=== PATIENT | female | born 1960 | race Caucasian/White ===

== ENCOUNTER 2021-11-22 09:51 | Inpatient (IN) | payer OTHER ==
[~2021-11-22] VITALS: Ht 165.1 cm; Wt 86.2 kg
[2021-11-22 10:28] LABS: HEMATOCRIT 32.9 % (31.2-41.9); MEAN CORPUSCULAR VOLUME 88.8 fL (75.5-95.3); PLATELET COUNT (AUTO) 348 K/uL (179-408)
[2021-11-22 10:36] LABS: CREATININE 0.8 mg/dL (0.6-1.3); POTASSIUM 3.7 mmol/L (3.5-5.1)
[2021-11-22] MEDS ORDERED: IV NORMAL SALINE 1000 ML BAG IV ONE (10:45)
[2021-11-22] MEDS ORDERED: DEXAMETHASONE SOD PHOSPHATE 4 MG INJ IV ONE (10:45)
[2021-11-22 10:54] LABS: BILIRUBIN,TOTAL 0.7 mg/dL (0.2-1.0); TOTAL PROTEIN, SERUM 7.6 g/dL (6.4-8.2)
[2021-11-22] MEDS ORDERED: DEXAMETHASONE SOD PHOSPHATE 10 MG INJ ONE (11:01)
[2021-11-22] MEDS ORDERED: IV NORMAL SALINE 250 ML IV ONE (11:39)
[2021-11-22] MEDS ORDERED: SWABABLE VALVE TRANSFER SET EA MC ONE (11:39)
[2021-11-22] MEDS ORDERED: IOHEXOL 350 100 ML INFUS..BTL ONE (11:39)
[2021-11-22 12:26] LABS: *BILIRUBIN,URIN NEGATIVE (NEGATIVE); *BLOOD, URINE NEGATIVE (NEGATIVE); *CLARITY,URINE CLEAR (CLEAR); *COLOR,URINE YELLOW (YELLOW); *KETONES,URINE NEGATIVE (NEGATIVE); LEUKOCYTE ESTERASE ,URINE NEGATIVE (NEGATIVE); NITRITE, URINE NEGATIVE (NEGATIVE); UGLUCOSE NEGATIVE (NEGATIVE)
[2021-11-22] MEDS ORDERED: HYDR25TA4 PO (13:00)
[2021-11-22] MEDS ORDERED: AMLO-212 PO (13:00)
[2021-11-22] MEDS ORDERED: ATOR80TA PO (13:00)
[2021-11-22] MEDS ORDERED: METF-494 PO (13:00)
[2021-11-22] MEDS ORDERED: AZITHROMYCIN IV 500 MG in IV DEXTROSE 5% 250 ML IV ONE (14:00)
[2021-11-22] MEDS ORDERED: CEFTRIAXONE 1 G in IV DEXTROSE 5% 50 ML IV ONE (14:00)
[2021-11-22] MEDS ORDERED: AZITHROMYCIN 500MG/ D5W 250ML IVPB **ER PYXIS ONLY IV ONE (14:08)
[2021-11-22] MEDS ORDERED: CEFTRIAXONE /D5W 50ML IVPB **ER PYXIS IV ONE (14:09)
[2021-11-22] MEDS ORDERED: ONDANSETRON 4 MG/2 ML VIAL IV PRN (16:00)
[2021-11-22] MEDS ORDERED: DEXTROSE 50% 50 ML DISP.SYRIN IV PRN (16:00)
[2021-11-22] MEDS ORDERED: ZOLPIDEM 5 MG TABLET PO PRN (16:00)
[2021-11-22] MEDS ORDERED: MAGNESIUM HYDROXIDE 30 ML LIQUID UDC PO PRN (16:00)
[2021-11-22] MEDS ORDERED: Z GUARD REMEDY PASTE 57 GM TUBE TOP PRN (16:00)
[2021-11-22] MEDS ORDERED: EZET10TA15 PO (16:21)
[2021-11-22] MEDS: BLOOD SUGAR DIAGNOSTIC 1 EACH STRIP VI SCH ×2 (16:30→23:20)
[2021-11-22] MEDS: BENZONATATE 100 MG CAPSULE PO SCH ×2 (16:55→22:34)
[2021-11-22] MEDS: ENOXAPARIN SODIUM 40 MG/0.4 ML DISP.SYRIN SQ SCH (16:56)
[2021-11-22] MEDS ORDERED: ENOXAPARIN SODIUM 40 MG/0.4 ML DISP.SYRIN SQ ONE (16:59)
[2021-11-22] MEDS ORDERED: BENZONATATE 100 MG CAPSULE ONE (16:59)
[2021-11-22 17:17] LABS: BACTERIA,URINE FEW /HPF (NONE SEEN); RBC,URINE 0-3 /HPF (0-3); SQUAMOUS EPITHELIAL CELL,UR MANY /HPF (NONE SEEN); WBC,URINE 0-3 /HPF (0-3)
[2021-11-22 17:18] LABS: MUCUS,URINE MANY /LPF (0-FEW)
[2021-11-22 20:38] VITALS: BP 150/73
[2021-11-22] MEDS: ATORVASTATIN 40 MG TABLET PO SCH (22:34)
[2021-11-22] MEDS: INSULIN REGULAR, HUMAN 300 UNIT/3 ML VIAL SQ PRN (23:44)
[2021-11-23] VITALS: BP 149/72
[2021-11-23 04:06] VITALS: BP 132/65
[2021-11-23] MEDS: BENZONATATE 100 MG CAPSULE PO SCH ×3 (05:19→22:18)
[2021-11-23] MEDS: ACETAMINOPHEN 325 MG TABLET PO PRN (05:37)
[2021-11-23] MEDS: BLOOD SUGAR DIAGNOSTIC 1 EACH STRIP VI SCH ×4 (06:38→21:38)
[2021-11-23] MEDS: PANTOPRAZOLE SODIUM 40 MG TABLET.DR PO SCH (06:38)
[2021-11-23 06:55] LABS: MEAN CORPUSCULAR HEMOGLOBIN 30.2 uug (24.7-32.8); PLATELET COUNT (AUTO) 363 K/uL (179-408)
[2021-11-23 08:00] LABS: CREATININE 0.7 mg/dL (0.6-1.3); MAGNESIUM 2.3 mg/dL (1.8-2.4); PHOSPHOROUS 3.5 mg/dL (2.5-4.9); POTASSIUM 4.1 mmol/L (3.5-5.1)
[2021-11-23] MEDS ORDERED: Medication Not On Formulary EA (Atorvastatin Calcium (Lipitor) 1 TAB) PO SCH (09:00)
[2021-11-23] MEDS: INSULIN REGULAR, HUMAN 300 UNIT/3 ML VIAL SQ PRN ×4 (09:10→21:46)
[2021-11-23] MEDS: AMLODIPINE 5 MG TABLET PO SCH (09:11)
[2021-11-23] MEDS: HYDROCHLOROTHIAZIDE 25 MG TABLET PO SCH (09:11)
[2021-11-23] MEDS: ENOXAPARIN SODIUM 40 MG/0.4 ML DISP.SYRIN SQ SCH (09:18)
[2021-11-23 12:00] VITALS: BP 144/74
[2021-11-23] MEDS ORDERED: ALBU2.5V38 IH (12:53)
[2021-11-23] MEDS ORDERED: FAMO-132 PO (12:54)
[2021-11-23] MEDS: CEFTRIAXONE 1 G in IV DEXTROSE 5% 50 ML IV SCH (14:24)
[2021-11-23 16:00] VITALS: BP 142/72
[2021-11-23] MEDS: AZITHROMYCIN 250 MG TABLET PO SCH (16:13)
[2021-11-23 20:03] VITALS: BP 132/68
[2021-11-23] MEDS ORDERED: REMDESIVIR (CHARGED) 200 MG in IV NORMAL SALINE 210 ML IV ONE (21:00)
[2021-11-23] MEDS: ATORVASTATIN 40 MG TABLET PO SCH (21:30)
[2021-11-23] MEDS: EZETIMIBE 10 MG TABLET PO SCH (21:30)
[2021-11-23] MEDS: DEXAMETHASONE 4 MG TABLET PO SCH (21:30)
[2021-11-24 00:03] VITALS: BP 134/81
[2021-11-24 04:03] VITALS: BP 154/84
[2021-11-24] MEDS: BENZONATATE 100 MG CAPSULE PO SCH ×3 (05:52→22:48)
[2021-11-24] MEDS: PANTOPRAZOLE SODIUM 40 MG TABLET.DR PO SCH (05:53)
[2021-11-24] MEDS: BLOOD SUGAR DIAGNOSTIC 1 EACH STRIP VI SCH ×4 (05:53→21:00)
[2021-11-24] MEDS: ACETAMINOPHEN 325 MG TABLET PO PRN (06:04)
[2021-11-24] MEDS: DEXAMETHASONE 4 MG TABLET PO SCH ×3 (06:12→22:47)
[2021-11-24] MEDS: GUAIFENESIN/DEXTROMETHORPHAN 5 ML UDC PO PRN ×2 (06:13→17:43)
[2021-11-24 08:00] LABS: HEMATOCRIT 33.7 % (31.2-41.9); MEAN CORPUSCULAR VOLUME 89.9 fL (75.5-95.3); PLATELET COUNT (AUTO) 386 K/uL (179-408)
[2021-11-24 08:31] LABS: BILIRUBIN,TOTAL 0.5 mg/dL (0.2-1.0); CREATININE 0.7 mg/dL (0.6-1.3); PHOSPHOROUS 4.5 mg/dL (2.5-4.9); POTASSIUM 4.7 mmol/L (3.5-5.1); TOTAL PROTEIN, SERUM 7.1 g/dL (6.4-8.2)
[2021-11-24] MEDS: AMLODIPINE 5 MG TABLET PO SCH (08:39)
[2021-11-24] MEDS: HYDROCHLOROTHIAZIDE 25 MG TABLET PO SCH (08:39)
[2021-11-24] MEDS: ENOXAPARIN SODIUM 40 MG/0.4 ML DISP.SYRIN SQ SCH (08:45)
[2021-11-24] MEDS: INSULIN REGULAR, HUMAN 300 UNIT/3 ML VIAL SQ PRN ×3 (08:46→17:22)
[2021-11-24 09:06] LABS: MAGNESIUM 2.1 mg/dL (1.8-2.4)
[2021-11-24 09:16] LABS: BILIRUBIN,DIRECT 0.1 mg/dL (0.0-0.2)
[2021-11-24 12:00] VITALS: BP 149/80
[2021-11-24] MEDS: CEFTRIAXONE 1 G in IV DEXTROSE 5% 50 ML IV SCH (14:22)
[2021-11-24] MEDS: AZITHROMYCIN 250 MG TABLET PO SCH (15:06)
[2021-11-24 16:00] VITALS: BP 147/72
[2021-11-24 20:00] VITALS: BP 155/68
[2021-11-24] MEDS: ATORVASTATIN 40 MG TABLET PO SCH (20:49)
[2021-11-24] MEDS: EZETIMIBE 10 MG TABLET PO SCH (20:50)
[2021-11-24] MEDS: REMDESIVIR (CHARGED) 100 MG in IV NORMAL SALINE 100 ML IV SCH (20:58)
[2021-11-25 00:18] VITALS: BP 138/60
[2021-11-25 04:00] VITALS: BP 137/65
[2021-11-25] MEDS: DEXAMETHASONE 4 MG TABLET PO SCH ×3 (05:13→21:17)
[2021-11-25] MEDS: PANTOPRAZOLE SODIUM 40 MG TABLET.DR PO SCH (05:14)
[2021-11-25] MEDS: BENZONATATE 100 MG CAPSULE PO SCH ×3 (05:14→21:18)
[2021-11-25] MEDS: BLOOD SUGAR DIAGNOSTIC 1 EACH STRIP VI SCH ×4 (05:18→21:30)
[2021-11-25 06:26] LABS: HEMATOCRIT 34.2 % (31.2-41.9); MEAN CORPUSCULAR HEMOGLOBIN 29.9 uug (24.7-32.8); MEAN CORPUSCULAR VOLUME 88.7 fL (75.5-95.3); PLATELET COUNT (AUTO) 441 K/uL (179-408)
[2021-11-25 07:10] LABS: BILIRUBIN,DIRECT 0.1 mg/dL (0.0-0.2); BILIRUBIN,TOTAL 0.5 mg/dL (0.2-1.0); CREATININE 0.7 mg/dL (0.6-1.3); POTASSIUM 4.5 mmol/L (3.5-5.1); TOTAL PROTEIN, SERUM 7.2 g/dL (6.4-8.2)
[2021-11-25] MEDS: INSULIN REGULAR, HUMAN 300 UNIT/3 ML VIAL SQ PRN ×3 (08:37→16:40)
[2021-11-25] MEDS: ENOXAPARIN SODIUM 40 MG/0.4 ML DISP.SYRIN SQ SCH (08:38)
[2021-11-25] MEDS: HYDROCHLOROTHIAZIDE 25 MG TABLET PO SCH (09:01)
[2021-11-25] MEDS: AMLODIPINE 5 MG TABLET PO SCH (09:01)
[2021-11-25 11:00] VITALS: BP 139/73
[2021-11-25] MEDS ORDERED: DEXTROSE 50% 50 ML DISP.SYRIN IV PRN (13:00)
[2021-11-25] MEDS: CEFTRIAXONE 1 G in IV DEXTROSE 5% 50 ML IV SCH (14:32)
[2021-11-25 16:00] VITALS: BP 156/71
[2021-11-25 20:00] VITALS: BP 141/74
[2021-11-25] MEDS: REMDESIVIR (CHARGED) 100 MG in IV NORMAL SALINE 100 ML IV SCH (21:08)
[2021-11-25] MEDS: EZETIMIBE 10 MG TABLET PO SCH (21:18)
[2021-11-25] MEDS: ATORVASTATIN 40 MG TABLET PO SCH (21:18)
[2021-11-25] MEDS: INSULIN REGULAR, HUMAN 300 UNITS/3 ML VIAL SQ PRN (21:37)
[2021-11-26] VITALS: BP 132/59
[2021-11-26 04:32] VITALS: BP 136/74
[2021-11-26] MEDS: BENZONATATE 100 MG CAPSULE PO SCH ×3 (06:58→22:24)
[2021-11-26] MEDS: DEXAMETHASONE 4 MG TABLET PO SCH ×2 (06:59→14:21)
[2021-11-26] MEDS: PANTOPRAZOLE SODIUM 40 MG TABLET.DR PO SCH (06:59)
[2021-11-26] MEDS: BLOOD SUGAR DIAGNOSTIC 1 EACH STRIP VI SCH ×4 (07:00→20:21)
[2021-11-26 07:18] LABS: HEMATOCRIT 35.8 % (31.2-41.9); MEAN CORPUSCULAR HEMOGLOBIN 29.4 uug (24.7-32.8); MEAN CORPUSCULAR VOLUME 88.5 fL (75.5-95.3); PLATELET COUNT (AUTO) 487 K/uL (179-408)
[2021-11-26 07:32] LABS: BILIRUBIN,DIRECT 0.1 mg/dL (0.0-0.2); BILIRUBIN,TOTAL 0.4 mg/dL (0.2-1.0); CREATININE 0.9 mg/dL (0.6-1.3); MAGNESIUM 2.3 mg/dL (1.8-2.4); POTASSIUM 4.6 mmol/L (3.5-5.1); TOTAL PROTEIN, SERUM 7.2 g/dL (6.4-8.2)
[2021-11-26] MEDS: AMLODIPINE 5 MG TABLET PO SCH (08:37)
[2021-11-26] MEDS: HYDROCHLOROTHIAZIDE 25 MG TABLET PO SCH (08:38)
[2021-11-26] MEDS: INSULIN REGULAR, HUMAN 300 UNIT/3 ML VIAL SQ PRN ×3 (09:23→16:29)
[2021-11-26] MEDS: ENOXAPARIN SODIUM 40 MG/0.4 ML DISP.SYRIN SQ SCH (09:39)
[2021-11-26 11:00] VITALS: BP 148/74
[2021-11-26 16:00] VITALS: BP 144/68
[2021-11-26] MEDS: METFORMIN HCL 500 MG TABLET PO SCH (17:43)
[2021-11-26] MEDS: EZETIMIBE 10 MG TABLET PO SCH (20:11)
[2021-11-26] MEDS: ATORVASTATIN 40 MG TABLET PO SCH (20:11)
[2021-11-26] MEDS: REMDESIVIR (CHARGED) 100 MG in IV NORMAL SALINE 100 ML IV SCH (20:11)
[2021-11-26] MEDS: INSULIN REGULAR, HUMAN 300 UNITS/3 ML VIAL SQ PRN (20:27)
[2021-11-27] VITALS: BP 122/68
[2021-11-27 04:00] VITALS: BP 105/67
[2021-11-27 05:00] VITALS: BP 107/53
[2021-11-27] MEDS: BENZONATATE 100 MG CAPSULE PO SCH ×3 (05:04→21:39)
[2021-11-27] MEDS: PANTOPRAZOLE SODIUM 40 MG TABLET.DR PO SCH (06:20)
[2021-11-27] MEDS: BLOOD SUGAR DIAGNOSTIC 1 EACH STRIP VI SCH ×4 (06:38→20:34)
[2021-11-27] MEDS: INSULIN REGULAR, HUMAN 300 UNIT/3 ML VIAL SQ PRN ×3 (07:58→16:54)
[2021-11-27 08:53] LABS: HEMATOCRIT 34.8 % (31.2-41.9); MEAN CORPUSCULAR HEMOGLOBIN 30.2 uug (24.7-32.8); PLATELET COUNT (AUTO) 475 K/uL (179-408)
[2021-11-27 09:17] LABS: BILIRUBIN,DIRECT 0.1 mg/dL (0.0-0.2); BILIRUBIN,TOTAL 0.6 mg/dL (0.2-1.0); CREATININE 0.7 mg/dL (0.6-1.3); MAGNESIUM 2.5 mg/dL (1.8-2.4); PHOSPHOROUS 4.8 mg/dL (2.5-4.9); POTASSIUM 4.5 mmol/L (3.5-5.1); TOTAL PROTEIN, SERUM 6.9 g/dL (6.4-8.2)
[2021-11-27] MEDS: DEXAMETHASONE 4 MG TABLET PO SCH ×2 (09:34→20:26)
[2021-11-27] MEDS: AMLODIPINE 5 MG TABLET PO SCH (09:37)
[2021-11-27] MEDS: METFORMIN HCL 500 MG TABLET PO SCH ×2 (09:37→17:28)
[2021-11-27] MEDS: HYDROCHLOROTHIAZIDE 25 MG TABLET PO SCH (09:37)
[2021-11-27] MEDS: ENOXAPARIN SODIUM 40 MG/0.4 ML DISP.SYRIN SQ SCH (09:39)
[2021-11-27 11:00] VITALS: BP 135/65
[2021-11-27] MEDS: ACETAMINOPHEN 325 MG TABLET PO PRN (18:45)
[2021-11-27 20:00] VITALS: BP 126/82
[2021-11-27] MEDS: REMDESIVIR (CHARGED) 100 MG in IV NORMAL SALINE 100 ML IV SCH (20:25)
[2021-11-27] MEDS: ATORVASTATIN 40 MG TABLET PO SCH (20:26)
[2021-11-27] MEDS: EZETIMIBE 10 MG TABLET PO SCH (20:26)
[2021-11-27] MEDS: INSULIN REGULAR, HUMAN 300 UNITS/3 ML VIAL SQ PRN (20:35)
[2021-11-28 00:38] VITALS: BP 113/58
[2021-11-28 04:45] VITALS: BP 130/70
[2021-11-28] MEDS: PANTOPRAZOLE SODIUM 40 MG TABLET.DR PO SCH (06:22)
[2021-11-28] MEDS: BENZONATATE 100 MG CAPSULE PO SCH ×2 (06:22→14:14)
[2021-11-28] MEDS: ACETAMINOPHEN 325 MG TABLET PO PRN ×2 (06:29→17:31)
[2021-11-28] MEDS: BLOOD SUGAR DIAGNOSTIC 1 EACH STRIP VI SCH ×3 (06:33→16:11)
[2021-11-28 08:07] LABS: HEMATOCRIT 37.2 % (31.2-41.9); MEAN CORPUSCULAR HEMOGLOBIN 30.3 uug (24.7-32.8); MEAN CORPUSCULAR VOLUME 88.3 fL (75.5-95.3); PLATELET COUNT (AUTO) 464 K/uL (179-408)
[2021-11-28 08:24] LABS: CREATININE 0.7 mg/dL (0.6-1.3); MAGNESIUM 2.3 mg/dL (1.8-2.4); PHOSPHOROUS 4.8 mg/dL (2.5-4.9); POTASSIUM 4.5 mmol/L (3.5-5.1)
[2021-11-28] MEDS: METFORMIN HCL 500 MG TABLET PO SCH ×2 (08:49→17:24)
[2021-11-28] MEDS: DEXAMETHASONE 4 MG TABLET PO SCH (08:49)
[2021-11-28] MEDS: AMLODIPINE 5 MG TABLET PO SCH (08:55)
[2021-11-28] MEDS: HYDROCHLOROTHIAZIDE 25 MG TABLET PO SCH (08:55)
[2021-11-28] MEDS: ENOXAPARIN SODIUM 40 MG/0.4 ML DISP.SYRIN SQ SCH (09:00)
[2021-11-28] MEDS: INSULIN REGULAR, HUMAN 300 UNIT/3 ML VIAL SQ PRN ×3 (09:03→16:15)
[2021-11-28] MEDS ORDERED: DEXA6TAB PO (09:53)
[2021-11-28] MEDS ORDERED: METF-495 PO (09:53)
[2021-11-28 12:19] VITALS: BP 114/69
[2021-11-28 16:09] VITALS: BP 125/65
== END 2021-11-28 18:21 | disposition home or self-care (01) | DRG 720 ==
LOC: ER 09:54 → TRANSITION 15:25 → TELE3 20:11
PROVIDERS: ADMIT Nurse Practitioner Family; ATTEND Nurse Practitioner Family
PROC: XW033E5 Introduction of Remdesivir Anti-infective into Peripheral Vein, Percutaneous Approach, New Technology Group 5 (ICD-10-PCS; principal; 2021-11-23)
PROC: 05HY33Z Insertion of Infusion Device into Upper Vein, Percutaneous Approach (ICD-10-PCS; 2021-11-23)
DX: A41.89 Other specified sepsis (principal); J96.01 Acute respiratory failure with hypoxia; J12.82 Pneumonia due to coronavirus disease 2019; U07.1 COVID-19; E44.0 Moderate protein-calorie malnutrition; E88.09 Other disorders of plasma-protein metabolism, not elsewhere classified; R74.01 Elevation of levels of liver transaminase levels; I10 Essential (primary) hypertension; E78.5 Hyperlipidemia, unspecified; K76.0 Fatty (change of) liver, not elsewhere classified; E11.65 Type 2 diabetes mellitus with hyperglycemia; D64.9 Anemia, unspecified; J90 Pleural effusion, not elsewhere classified; E66.9 Obesity, unspecified; Z68.31 Body mass index [BMI] 31.0-31.9, adult
CPT/HCPCS: 36415; 70030-TC; 71045; 71275; 83605; 83615; 83735; 84100; 85025; 85610; 85730; 86140; 86803; 87040; 87086; 87400; 87806; 93005; 93307; 94760; A4663; G0378; J0456; J0696; J1100; J1650; J1815; J3490; J7050; J7060; J8540; Q0144; Q9967; U0003

== ENCOUNTER 2021-12-15 18:03 | Emergency (ER) | payer OTHER ==
[~2021-12-15] VITALS: Ht 165.1 cm; Wt 81.6 kg
[~2021-12-15 18:03] MED LIST: ALBU2.5V38 IH; AMLO-212 PO; ATOR80TA PO; DEXA6TAB PO; EZET10TA15 PO; FAMO-132 PO; HYDR25TA4 PO; METF-495 PO
[2021-12-15 19:13] LABS: *BILIRUBIN,URIN NEGATIVE (NEGATIVE); *BLOOD, URINE NEGATIVE (NEGATIVE); *CLARITY,URINE CLEAR (CLEAR); *KETONES,URINE NEGATIVE (NEGATIVE); *UROBILINOGEN,URINE 0.2 E.U./dl (NORMAL); LEUKOCYTE ESTERASE ,URINE NEGATIVE (NEGATIVE); NITRITE, URINE NEGATIVE (NEGATIVE); PH,URINE 6.5 (5.0-8.0); UGLUCOSE NEGATIVE (NEGATIVE)
[2021-12-15 19:15] LABS: *COLOR,URINE STRAW (YELLOW)
[2021-12-15 20:14] LABS: MEAN CORPUSCULAR HEMOGLOBIN 30.3 uug (24.7-32.8); MEAN CORPUSCULAR VOLUME 89.8 fL (75.5-95.3); PLATELET COUNT (AUTO) 163 K/uL (179-408)
[2021-12-15 20:22] LABS: CREATININE 0.7 mg/dL (0.6-1.3); POTASSIUM 3.7 mmol/L (3.5-5.1)
[2021-12-15 20:28] LABS: BILIRUBIN,DIRECT 0.1 mg/dL (0.0-0.2); BILIRUBIN,TOTAL 0.5 mg/dL (0.2-1.0); TOTAL PROTEIN, SERUM 7.3 g/dL (6.4-8.2)
--- NOTE | 2021-12-15 21:05 | NUR ---
Dr Howe into re eval patient.
[2021-12-15] MEDS ORDERED: PHEN-704 PO (21:29)
[2021-12-15] MEDS ORDERED: PHENAZOPYRIDINE HCL 100 MG TABLET PO ONE (21:30)
[2021-12-15 21:41] VITALS: BP 140/75
--- NOTE | 2021-12-15 21:41 | NUR ---
Patient discharged to home in stable condition. Written and verbal after care instructions given. Patient verbalizes understanding of instructions. Stressed follow up or return to ER for worsening s/s.
[2021-12-15] MEDS ORDERED: PHENAZOPYRIDINE HCL 100 MG TABLET ONE (21:43)
== END 2021-12-15 21:41 | disposition home or self-care (01) ==
LOC: ER 18:04
DX: R35.0 Frequency of micturition (principal); E11.9 Type 2 diabetes mellitus without complications; Z79.84 Long term (current) use of oral hypoglycemic drugs; Z79.899 Other long term (current) drug therapy; E78.5 Hyperlipidemia, unspecified; Z86.16 Personal history of COVID-19; I83.92 Asymptomatic varicose veins of left lower extremity
CPT/HCPCS: 36415; 83735; 85025; A4663

== ENCOUNTER 2025-01-12 13:55 | Inpatient (IN) | payer OTHER ==
[~2025-01-12] VITALS: Ht 170.2 cm; Wt 88.9 kg
[~2025-01-12 13:55] MED LIST changes: +PHEN-704 PO
[2025-01-12 14:41] LABS: BASOPHILS % (AUTO) 0.3 % (0.0-2.0); EOSINOPHILS # (AUTO) 0.2 K/uL (0.0-0.7); EOSINOPHILS % (AUTO) 2.2 % (0.0-7.0); HEMOGLOBIN 14.1 g/dL (10.9-14.3); LYMPHOCYTES # (AUTO) 1.8 K/uL (0.8-4.8); LYMPHOCYTES % (AUTO) 20.5 % (20.5-51.5); MEAN CORPUSCULAR HEMOGLOBIN 30.1 uug (24.7-32.8); MEAN CORPUSCULAR HGB CONC 34 g/dL (32.3-35.6); MEAN CORPUSCULAR VOLUME 89.4 fL (75.5-95.3); MONOCYTES # (AUTO) 0.7 K/uL (0.1-1.30); MONOCYTES % (AUTO) 7.5 % (0.0-11.0); NEUTROPHILS # (AUTO) 6.2 K/uL (1.8-8.9); NEUTROPHILS % (AUTO) 69.5 % (38.5-71.5); PLATELET COUNT (AUTO) 252 K/uL (179-408); RED BLOOD CELL COUNT(AUTO) 4.69 MIL/uL (3.63-4.92); WHITE BLOOD COUNT (AUTO) 8.9 K/uL (3.8-11.8)
[2025-01-12 14:42] LABS: *BILIRUBIN,URIN NEGATIVE (NEGATIVE); *BLOOD, URINE NEGATIVE (NEGATIVE); *CLARITY,URINE CLEAR (CLEAR); *COLOR,URINE YELLOW (YELLOW); *KETONES,URINE NEGATIVE (NEGATIVE); *PROTEIN,URINE NEGATIVE (NEGATIVE); *UROBILINOGEN,URINE 0.2 E.U./dl (NORMAL); LEUKOCYTE ESTERASE ,URINE NEGATIVE (NEGATIVE); NITRITE, URINE NEGATIVE (NEGATIVE); PH,URINE 5.5 (5.0-8.0); UGLUCOSE 2+ (NEGATIVE)
[2025-01-12 14:46] LABS: DIFFERENTIAL COMMENT 1
[2025-01-12 14:48] LABS: CALCIUM 9.4 mg/dL (8.5-10.1); CREATININE 0.6 mg/dL (0.6-1.3)
[2025-01-12 14:54] LABS: ALBUMIN 3.7 g/dL (3.4-5.0); BILIRUBIN,DIRECT 0.1 mg/dL (0.0-0.2); BILIRUBIN,TOTAL 0.8 mg/dL (0.2-1.0); TOTAL PROTEIN, SERUM 7.9 g/dL (6.4-8.2)
[2025-01-12] MEDS ORDERED: IOHEXOL 300MG/ML 100 ML INFUS..BTL ONE (15:19)
[2025-01-12] MEDS ORDERED: IV NORMAL SALINE 250 ML IV ONE (15:19)
[2025-01-12] MEDS ORDERED: SWABABLE VALVE TRANSFER SET EA MC ONE (15:19)
[2025-01-12 15:26] LABS: BACTERIA,URINE NONE SEEN /HPF (NONE SEEN); RBC,URINE NONE SEEN /HPF (0-3); SQUAMOUS EPITHELIAL CELL,UR FEW /HPF (NONE SEEN); WBC,URINE 0-3 /HPF (0-3)
[2025-01-12] MEDS: IV NS 1000 ML 1,000 ML IV ONE (15:29)
[2025-01-12] MEDS ORDERED: PIPERACILLIN/TAZOBACTAM/D5W 50 ML IV ONE ×2 (16:42→21:09)
[2025-01-12] MEDS: PIPERACILLIN SODIUM/TAZOBACTAM 3.375 G in IV DEXTROSE 5% 50 ML IV ONE (16:50)
[2025-01-12] MEDS: ONDANSETRON 4 MG/2 ML VIAL IV ONE (17:30)
[2025-01-12] MEDS: MORPHINE SULFATE 4 MG/1 ML DISP.SYRIN IV ONE (17:30)
[2025-01-12 19:00] VITALS: BP 176/82; TEMP 98.1; O2SAT 95
[2025-01-12] MEDS ORDERED: MORPHINE SULFATE 2 MG/1 ML DISP.SYRIN IV PRN (19:00)
[2025-01-12] MEDS ORDERED: ALBUTEROL SULFATE 2.5 MG/3 ML NEBU IH PRN (19:00)
[2025-01-12] MEDS ORDERED: TEMAZEPAM 15 MG CAPSULE PO PRN (19:00)
[2025-01-12] MEDS ORDERED: ONDANSETRON 4 MG/2 ML VIAL IV PRN (19:00)
[2025-01-12] MEDS: hydrALAZINE HCL 25 MG TABLET PO PRN (19:38)
[2025-01-12] MEDS: ACETAMINOPHEN 325 MG TABLET PO PRN (19:51)
[2025-01-12] MEDS: METOPROLOL TARTRATE 25 MG TABLET PO SCH (21:33)
[2025-01-12] MEDS ORDERED: PIPERACILLIN SODIUM/TAZOBACTAM 3.375 G in IV DEXTROSE 5% 50 ML IV SCH (22:00)
[2025-01-12] MEDS: PIPERACILLIN SODIUM/TAZOBACTAM 3.375 G in IV DEXTROSE 5% 50 ML IV SCH (22:00)
[2025-01-13] MEDS ORDERED: PIPERACILLIN/TAZOBACTAM/D5W 50 ML IV ONE (04:17)
[2025-01-13 06:00] VITALS: BP 141/83; TEMP 98.3; O2SAT 97
[2025-01-13] MEDS: PANTOPRAZOLE SODIUM 40 MG TABLET.DR PO SCH (06:25)
[2025-01-13 07:10] LABS: BASOPHILS % (AUTO) 0.4 % (0.0-2.0); EOSINOPHILS # (AUTO) 0.3 K/uL (0.0-0.7); EOSINOPHILS % (AUTO) 3.6 % (0.0-7.0); HEMATOCRIT 38.8 % (31.2-41.9); HEMOGLOBIN 13.1 g/dL (10.9-14.3); LYMPHOCYTES # (AUTO) 1.8 K/uL (0.8-4.8); LYMPHOCYTES % (AUTO) 26.7 % (20.5-51.5); MEAN CORPUSCULAR HEMOGLOBIN 29.9 uug (24.7-32.8); MEAN CORPUSCULAR HGB CONC 34 g/dL (32.3-35.6); MEAN CORPUSCULAR VOLUME 88.8 fL (75.5-95.3); MONOCYTES # (AUTO) 0.6 K/uL (0.1-1.30); MONOCYTES % (AUTO) 8.2 % (0.0-11.0); NEUTROPHILS # (AUTO) 4.2 K/uL (1.8-8.9); NEUTROPHILS % (AUTO) 61.1 % (38.5-71.5); PLATELET COUNT (AUTO) 229 K/uL (179-408); RED BLOOD CELL COUNT(AUTO) 4.37 MIL/uL (3.63-4.92); WHITE BLOOD COUNT (AUTO) 6.9 K/uL (3.8-11.8)
[2025-01-13 07:28] LABS: ALBUMIN 3.3 g/dL (3.4-5.0); BILIRUBIN,TOTAL 0.8 mg/dL (0.2-1.0); CALCIUM 9.2 mg/dL (8.5-10.1); CREATININE 0.7 mg/dL (0.6-1.3); MAGNESIUM 1.9 mg/dL (1.8-2.4); POTASSIUM 3.9 mmol/L (3.5-5.1)
[2025-01-13 07:39] LABS: DIFFERENTIAL COMMENT 1
[2025-01-13 08:00] VITALS: BP 133/72; TEMP 98; O2SAT 99
[2025-01-13] MEDS: AMLODIPINE 5 MG TABLET PO SCH (08:29)
[2025-01-13] MEDS: HYDROCHLOROTHIAZIDE 25 MG TABLET PO SCH (08:29)
[2025-01-13] MEDS ORDERED: LOSA25TA27 PO (10:07)
[2025-01-13] MEDS ORDERED: METF-440 PO (10:08)
[2025-01-13] MEDS ORDERED: EMPA25TA PO (10:09)
[2025-01-13 10:59] VITALS: BP 136/83; TEMP 98.4; O2SAT 97
[2025-01-13] MEDS: levoFLOXacin 500 MG/D5W 500 MG in PREMIXED 1 EACH IV SCH (12:23)
[2025-01-13] MEDS: METRONIDAZOLE 500 MG/NS 100ML 500 MG in PREMIXED 1 EACH IV SCH (13:12)
[2025-01-13] MEDS ORDERED: diphenhydrAMINE 50 MG/1 ML VIAL IV PRN (13:45)
[2025-01-13] MEDS: DEXAMETHASONE SOD PHOSPHATE 4 MG INJ IV ONE (13:47)
[2025-01-13] MEDS ORDERED: PIPERACILLIN SODIUM/TAZOBACTAM 3.375 G in IV DEXTROSE 5% 100 ML IV SCH (14:00)
[2025-01-13 16:19] VITALS: BP 113/55; TEMP 98.7; O2SAT 98
[2025-01-13 19:00] VITALS: BP 121/58; TEMP 98.4; O2SAT 94
[2025-01-13 20:00] VITALS: BP 121/58; TEMP 98.4; O2SAT 94
[2025-01-14 04:57] VITALS: BP 126/68; TEMP 98.3; O2SAT 98
[2025-01-14 05:33] VITALS: BP 126/68; TEMP 98.3; O2SAT 98
[2025-01-14 06:42] LABS: BASOPHILS % (AUTO) 0.2 % (0.0-2.0); EOSINOPHILS % (AUTO) 0.2 % (0.0-7.0); HEMATOCRIT 40.4 % (31.2-41.9); HEMOGLOBIN 13.3 g/dL (10.9-14.3); LYMPHOCYTES # (AUTO) 1.1 K/uL (0.8-4.8); MEAN CORPUSCULAR HEMOGLOBIN 29.5 uug (24.7-32.8); MEAN CORPUSCULAR HGB CONC 33 g/dL (32.3-35.6); MEAN CORPUSCULAR VOLUME 89.2 fL (75.5-95.3); MONOCYTES # (AUTO) 0.5 K/uL (0.1-1.30); MONOCYTES % (AUTO) 5.6 % (0.0-11.0); NEUTROPHILS # (AUTO) 6.8 K/uL (1.8-8.9); PLATELET COUNT (AUTO) 263 K/uL (179-408); RED BLOOD CELL COUNT(AUTO) 4.52 MIL/uL (3.63-4.92); RED CELL DISTRIBUTION WIDTH 14.1 % (12.3-17.7); WHITE BLOOD COUNT (AUTO) 8.3 K/uL (3.8-11.8)
[2025-01-14 06:59] LABS: CALCIUM 9.9 mg/dL (8.5-10.1); CREATININE 0.7 mg/dL (0.6-1.3); MAGNESIUM 2.1 mg/dL (1.8-2.4); PHOSPHOROUS 4.5 mg/dL (2.5-4.9); POTASSIUM 3.8 mmol/L (3.5-5.1)
[2025-01-14 07:02] LABS: DIFFERENTIAL COMMENT 1
[2025-01-14 11:54] VITALS: BP 125/89; TEMP 98.4; O2SAT 98
[2025-01-14] MEDS ORDERED: METRONIDAZOLE 500 MG TABLET PO SCH (14:00)
[2025-01-14] MEDS: METRONIDAZOLE 500 MG/NS 100ML 500 MG in PREMIXED 1 EACH IV SCH (14:21)
[2025-01-14] MEDS ORDERED: POLY17PO4 PO (15:49)
[2025-01-14] MEDS ORDERED: BISA10SU61 RC (15:49)
[2025-01-14] MEDS ORDERED: LEVO500T90 PO (15:49)
[2025-01-14] MEDS ORDERED: DOCU-141 PO (15:49)
[2025-01-14] MEDS ORDERED: METR500T PO (15:49)
[2025-01-14 15:58] VITALS: BP 134/63; TEMP 97.6; O2SAT 99
== END 2025-01-14 18:00 | disposition home or self-care (01) | DRG 244 ==
LOC: ER 14:00 → MEDSURG3 18:39
PROVIDERS: ADMIT Internal Medicine; ATTEND Internal Medicine
DX: K57.32 Diverticulitis of large intestine without perforation or abscess without bleeding (principal); E11.65 Type 2 diabetes mellitus with hyperglycemia; E66.9 Obesity, unspecified; Z68.30 Body mass index [BMI] 30.0-30.9, adult; E78.5 Hyperlipidemia, unspecified; Z87.01 Personal history of pneumonia (recurrent); Z86.16 Personal history of COVID-19; L27.0 Generalized skin eruption due to drugs and medicaments taken internally; T36.0X5A Adverse effect of penicillins, initial encounter; Y92.230 Patient room in hospital as the place of occurrence of the external cause; K59.00 Constipation, unspecified; I10 Essential (primary) hypertension; Z79.84 Long term (current) use of oral hypoglycemic drugs; Z79.899 Other long term (current) drug therapy
CPT/HCPCS: 36415; 83735; 84100; 85025; A4663; G0378; J1100; J1956; J2270; J2405; J2543; J3490; J7040; Q9967